=== PATIENT | male | born 1985 | race Hispanic/Latino ===

== ENCOUNTER 2019-08-05 | Emergency (ER) | payer SELFPAY ==
--- NOTE | 2019-08-05 12:57 | ER ---
Nurse's Notes [facility] Name: Kelechi Leary Age: 34 yrs Sex: Male : 1985 Arrival Date: 08/05/2019 Time: 12:30 Bed 13 Private MD: Diagnosis: Right rotator cuff injury;Supraspinatus injury Presentation: 08/05 12:36 Chief complaint: Patient states: Right shoulder pain for 4 months. No known injury. PMS ll1 intact. Coronavirus screen: The patient has NOT traveled to [place] in the past 14 days. Proceed with normal triage procedures. Ebola Screen: No symptoms or risks identified at this time. Initial Sepsis Screen: Does the patient meet any 2 criteria? No. Patient's initial sepsis screen is negative. Does the patient have a suspected source of infection? No. Patient's initial sepsis screen is negative. Risk Assessment: Do you want to hurt yourself or someone else? Patient reports no desire to harm self or others. 12:36 Method Of Arrival: Ambulatory ll1 12:36 Acuity: LENY 4 ll1 12:40 Onset of symptoms was August 05, 2019. ca1 Historical: - Allergies: 12:39 No Known Allergies; ll1 - PMHx: 12:39 None; ll1 - PSHx: 12:39 abscess drainage; ll1 - Immunization history:: Last tetanus immunization: unknown. - Social history:: Patient/guardian denies using alcohol, street drugs, Smoking status: Patient denies any tobacco usage or history of. Screenin:41 Abuse screen: Denies threats or abuse. Denies injuries from another. Nutritional ca1 screening: No deficits noted. Tuberculosis screening: No symptoms or risk factors identified. Fall Risk None identified. Assessment: 12:41 General: Appears in no apparent distress. comfortable, Behavior is calm, cooperative, ca1 appropriate for age. Pain: Complains of pain in anterior aspect of right shoulder Pain currently is 0 out of 10 on a pain scale. Neuro: Level of Consciousness is awake, alert, obeys commands, Oriented to person, place, time, situation, Appropriate for age. Derm: Skin is intact, is healthy with good turgor, Skin is pink, warm \T\ dry. Musculoskeletal: Circulation, motion, and sensation intact. Capillary refill < 3 seconds, Range of motion: intact in all extremities. Vital Signs: 12:36 BP 121 / 90; Pulse 64; Resp 17; Temp 97.8; Pulse Ox 99% ; Weight 63.5 kg; Height 5 ft. ll1 5 in. (165.10 cm); Pain 0/10; 12:36 Body Mass Index 23.30 (63.50 kg, 165.10 cm) ll1 ED Course: 12:30 Patient arrived in ED. as 12:38 Triage completed. ll1 12:39 Arm band placed on right wrist. Patient placed in an exam room. ll1 12:41 Patient has correct armband on for positive identification. Bed in low position. Call ca1 light in reach. Side rails up X 1. Pulse ox on. NIBP on. 12:41 No provider procedures requiring assistance completed. Patient did not have IV access ca1 during this emergency room visit. 12:43 Neymar Patricia MD is Attending Physician. ps1 12:55 Cyrus Ross MD is Referral Physician. ps1 12:59 Mariaa Hanson RN is Primary Nurse. ca1 Administered Medications: No medications were administered Outcome: 12:56 Discharge ordered by . ps1 13:04 Discharged to home ambulatory. ca1 13:04 Condition: stable 13:04 Discharge instructions given to patient, Instructed on discharge instructions, follow up and referral plans. medication usage, Demonstrated understanding of instructions, follow-up care, medications, Prescriptions given X 2. 13:04 Patient left the ED. ca1 Signatures: Mary Lopez as Neymar Patricia MD MD ps1 Mariaa Hanson RN RN ca1 Parker Valderrama RN RN ll1
--- NOTE | 2019-08-05 12:57 | EDPHYS ---
Physician Documentation [facility] Name: Kelechi Leary Age: 34 yrs Sex: Male : 1985 Arrival Date: 08/05/2019 Time: 12:30 Bed 13 Private MD: MIN Physician Neymar Patricia HPI: 08/05 12:49 This 34 yrs old Male presents to ER via Ambulatory with complaints of Shoulder ps1 Pain. 12:49 Patient states that he hurt his shoulder in April and has intermittent pain since. ps1 Pain is worse with lifting and moving in certain directions. 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 Pain mild but with certain movements is acutely painful. No fever or joint swelling. . Historical: - Allergies: 12:39 No Known Allergies; ll1 - PMHx: 12:39 None; ll1 - PSHx: 12:39 abscess drainage; ll1 - Immunization history:: Last tetanus immunization: unknown. - Social history:: Patient/guardian denies using alcohol, street drugs, Smoking status: Patient denies any tobacco usage or history of. ROS: 12:49 Constitutional: Negative for fever, chills, and weight loss, Eyes: Negative for injury, ps1 pain, redness, and discharge, Cardiovascular: Negative for chest pain, palpitations, and edema, Respiratory: Negative for shortness of breath, cough, wheezing, and pleuritic chest pain, Abdomen/GI: Negative for abdominal pain, nausea, vomiting, diarrhea, and constipation, Skin: Negative for injury, rash, and discoloration, Neuro: Negative for headache, weakness, numbness, tingling, and seizure. 12:49 MS/extremity: Positive for tenderness, of the right scapular area. Exam: 12:49 Constitutional: This is a well developed, well nourished patient who is awake, alert, ps1 and in no acute distress. Head/Face: Normocephalic, atraumatic. Eyes: Pupils equal round and reactive to light, extra-ocular motions intact. Lids and lashes normal. Conjunctiva and sclera are non-icteric and not injected. Chest/axilla: Normal chest wall appearance and motion. Nontender with no deformity. No lesions are appreciated. Cardiovascular: Regular rate and rhythm. No gallops, murmurs, or rubs. Normal PMI, no JVD. No pulse deficits. Respiratory: Lungs have equal breath sounds bilaterally, clear to auscultation and percussion. No rales, rhonchi or wheezes noted. No increased work of breathing, no retractions or nasal flaring. Abdomen/GI: Soft, non-tender, with normal bowel sounds. No distension or tympany. No guarding or rebound. No evidence of tenderness throughout. 12:49 Musculoskeletal/extremity: Extremities: grossly normal except: noted in the right scapular area and anterior aspect of right shoulder: pain, positive apleys test cw supraspinatus rotator cuff injury. . Vital Signs: 12:36 BP 121 / 90; Pulse 64; Resp 17; Temp 97.8; Pulse Ox 99% ; Weight 63.5 kg; Height 5 ft. ll1 5 in. (165.10 cm); Pain 0/10; 12:36 Body Mass Index 23.30 (63.50 kg, 165.10 cm) ll1 MDM: 12:49 Differential diagnosis: tendonitis, rotator cuff injury. ps1 12:56 Patient medically screened. ps1 12:58 Data reviewed: vital signs, nurses notes, and as a result, I will discharge patient. ps1 Counseling: I had a detailed discussion with the patient and/or guardian regarding: the historical points, exam findings, and any diagnostic results supporting the discharge/admit diagnosis, the need for outpatient follow up, a orthopedic surgeon. ED course: 34 y/o M with months of right shoulder pain. Exam cw rotator cuff tendonitis. Anaprox and Medrol. Conservative treatment. Follow up with Ortho/Sports for further diagnostic testing and E/M. . Administered Medications: No medications were administered Disposition: 08/05/19 12:56 Discharged to Home. Impression: Right rotator cuff injury, Supraspinatus injury. - Condition is Stable. - Discharge Instructions: Rotator Cuff Injury, Rotator Cuff Tendinitis. - Prescriptions for Anaprox DS 550 mg Oral Tablet - take 1 tablet by ORAL route every 12 hours As needed; 20 tablet. Medrol (Nicholas) 4 mg Oral Tablets, Dose Pack - take 1 tablet by ORAL route as directed - follow package instructions; 1 packet. - Medication Reconciliation Form, Thank You Letter, Antibiotic Education, Prescription Opioid Use form. - Follow up: Emergency Department; When: As needed; Reason: Worsening of condition. Follow up: Private Physician; When: As needed; Reason: Further diagnostic work-up, Recheck today's complaints, Continuance of care, Re-evaluation by your physician. Follow up: Cyrus Ross MD; When: 1 week; Reason: Further diagnostic work-up. - Problem is an ongoing problem. - Symptoms have worsened. Signatures: Neymar Patricia MD MD ps1 Mariaa Hanson RN RN ca1 Parker Valderrama RN RN ll1 Corrections: (The following items were deleted from the chart) 13:04 12:56 08/05/2019 12:56 Discharged to Home. Impression: Right rotator cuff injury; ca1 Supraspinatus injury. Condition is Stable. Forms are Medication Reconciliation Form, Thank You Letter, Antibiotic Education, Prescription Opioid Use. Follow up: Emergency Department; When: As needed; Reason: Worsening of condition. Follow up: Private Physician; When: As needed; Reason: Further diagnostic work-up, Recheck today's complaints, Continuance of care, Re-evaluation by your physician. Follow up: Dr. Cyrus Ross; When: 1 week; Reason: Further diagnostic work-up. Problem is an ongoing problem. Symptoms have worsened. ps1
== END 2019-08-05 13:04 | disposition home or self-care (01) ==
DX: S46.001A Unspecified injury of muscle(s) and tendon(s) of the rotator cuff of right shoulder, initial encounter (principal)
CPT/HCPCS: 99283